=== PATIENT | female | born 1935 | race Caucasian/White ===

== ENCOUNTER → 2016-09-21 | Outpatient (CLI) | payer MEDICARE, OTHER ==
[~2016-09-21] MED LIST: ALBU18HF2 INH; ASCO-324 PO; CHOL100092 PO; FISH1CAP28 PO; FLUT16SP12 NS; HYDR-4246 PO; IRON150C13 PO; METO100T60 PO; OMEP20CA81 PO; ONDA4TAB4 PO; SIMV80TA5 PO; VITA-358 PO
== END ==
LOC: WC.BC 14:44
DX: Z12.31 Encounter for screening mammogram for malignant neoplasm of breast (principal); C50.912 Malignant neoplasm of unspecified site of left female breast; N64.59 Other signs and symptoms in breast
CPT/HCPCS: 77063; G0202

== ENCOUNTER → 2016-11-21 | Outpatient (CLI) | payer MEDICARE, OTHER ==
--- NOTE | 2016-11-21 17:03 | DI ---
Indication: ITS.REASON: R05 COUGH CHEST, PA LATERAL: Comparison: 10/27/2015 Technique: PA and lateral chest Findings: Patient continues to show similar heart size and central vascularity and mediastinum. Patient shows chronic lung changes also stable since prior study. 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 Impression: Patient continues to show mild chronic appearing changes without acute new abnormality. .
== END ==
LOC: IMA 16:31
PROVIDERS: ATTEND Family Medicine
DX: R05 Cough (principal); R91.8 Other nonspecific abnormal finding of lung field